=== PATIENT | female | born 1980 | race Caucasian/White ===

== ENCOUNTER 2016-07-05 17:10 | Inpatient (IN) | payer OTHER ==
[~2016-07-05] VITALS: Ht 154.9 cm; Wt 62.1 kg
[~2016-07-05 17:10] MED LIST: BUPIVACAINE /PF 0.25% 30 ML VIAL INJ ONE; ROPIVACAINE 40 MG/20 ML AMP EP ONE
[2016-07-05 18:38] VITALS: BP 86/51; PULSE 85; RESP 18; TEMP 97.7
[2016-07-05] MEDS ORDERED: OXYTOCIN/NORMAL SALINE 1,000 ML IV SCH (19:42)
[2016-07-05] MEDS ORDERED: NALBUPHINE HCL 10 MG/ML AMP IM PRN (19:45)
[2016-07-05] MEDS: LR 1,000 ML IV SCH ×3 (20:17→22:03)
[2016-07-05 20:31] LABS: HEMATOCRIT 32.7 % (36-48); HEMOGLOBIN 10.8 g/dL (12.0-16.0); MEAN CORPUSCULAR HEMOGLOBIN 29 pg (27-31); MEAN CORPUSCULAR HGB CONC 33 % (32-36); MEAN CORPUSCULAR VOLUME 86 fL (79.0-98.0); PLATELET COUNT (AUTO) 218 K/uL (130-430)
[2016-07-05 20:39] LABS: BASOPHILS % (AUTO) 0.6 % (0.0-2.0); EOSINOPHILS % (AUTO) 1.6 % (0.0-4.0); LYMPHOCYTES # (AUTO) 2.2 K/uL (1.0-5.5); LYMPHOCYTES % (AUTO) 15.5 % (20.5-51.5); MONOCYTES % (AUTO) 5.8 % (1.7-9.3); NEUTROPHILS # (AUTO) 10.9 K/uL (1.8-7.7); NEUTROPHILS % (AUTO) 76.5 % (40.0-70.0)
[2016-07-05 20:40] LABS: BASOPHILS # (AUTO) 0.1 K/uL (0.0-0.2); EOSINOPHILS # (AUTO) 0.2 K/uL (0.0-0.4); MONOCYTES # (AUTO) 0.8 K/uL (0.0-1.0); WHITE BLOOD COUNT (AUTO) 14.2 K/uL (4.8-10.8)
[2016-07-05] MEDS ORDERED: fentaNYL CITRATE/PF 100 MCG/2 ML AMP ONE (21:27)
[2016-07-05] MEDS ORDERED: FENT2mCg/mL-ROPIVA0.2%/NS EPID 150 ML EP ONE (21:27)
[2016-07-06] MEDS: LR 1,000 ML IV SCH (05:17)
[2016-07-06] MEDS ORDERED: OXYTOCIN/NORMAL SALINE 1,000 ML IV ONE (05:57)
[2016-07-06] MEDS ORDERED: OXYTOCIN/NORMAL SALINE 1,000 ML IV SCH (05:57)
[2016-07-06] MEDS ORDERED: LANOLIN 7 GM OINT. TP PRN (06:00)
[2016-07-06] MEDS ORDERED: GLYCERIN/WITCH HAZEL (TUCKS PADS) TP PRN (06:00)
[2016-07-06] MEDS ORDERED: MEASLES,MUMPS&RUBELLA VACC/PF 12500 UNIT/0.5 ML VIAL SUBQ PRN (06:00)
[2016-07-06] MEDS ORDERED: HYDROCORTISONE 0.5%, 28.35 GM TOPICAL CREAM TP PRN (06:00)
[2016-07-06] MEDS ORDERED: ANUSOL 1 EA SUPP.RECT (PREPARATION H) RC PRN (06:00)
[2016-07-06] MEDS ORDERED: OXYCODONE/ACETAMINOPHEN 5-325 TABLET PO PRN ×2 (06:00)
[2016-07-06] MEDS ORDERED: RHO(D) IMMUNE GLOBULIN/MALTOSE 1500 UNITS/1.3 ML (WINHRO) IM PRN (06:00)
[2016-07-06] MEDS ORDERED: DERMOPLAST SPRAY TP PRN (06:00)
[2016-07-06] MEDS ORDERED: SENNOSIDES/DOCUSATE SODIUM 1 TAB TABLET(SENOKOT-S) PO PRN (06:00)
[2016-07-06] MEDS ORDERED: METHYLERGONOVINE MALEATE 0.2 MG TABLET PO PRN (06:00)
[2016-07-06] MEDS: IBUPROFEN 800 MG TABLET PO PRN ×3 (10:06→23:57)
[2016-07-06] MEDS: DOCUSATE SODIUM 100 MG CAPSULE PO PRN ×2 (12:35→12:36)
[2016-07-06] MEDS ORDERED: TEMAZEPAM 15 MG CAPSULE PO PRN (21:00)
[2016-07-07] MEDS: IBUPROFEN 800 MG TABLET PO PRN (06:02)
[2016-07-07] MEDS: DOCUSATE SODIUM 100 MG CAPSULE PO PRN (06:03)
[2016-07-07 07:23] LABS: HEMATOCRIT 28.8 % (36-48); HEMOGLOBIN 9.5 g/dL (12.0-16.0)
== END 2016-07-07 12:20 | disposition home or self-care (01) | DRG 775 ==
LOC: SPU 17:10 → OBSVTOIN 18:55
PROVIDERS: ADMIT Obstetrics & Gynecology; ATTEND Obstetrics & Gynecology
PROC: 10E0XZZ Delivery of Products of Conception, External Approach (ICD-10-PCS; principal; 2016-07-05)
PROC: 0HQ9XZZ Repair Perineum Skin, External Approach (ICD-10-PCS; 2016-07-05)
PROC: 3E0S3CZ (ICD-10-PCS; 2016-07-05)
PROC: 00HU33Z Insertion of Infusion Device into Spinal Canal, Percutaneous Approach (ICD-10-PCS; 2016-07-05)
DX: O69.81X0 Labor and delivery complicated by cord around neck, without compression, not applicable or unspecified (principal); O09.513 Supervision of elderly primigravida, third trimester; Z37.0 Single live birth; O70.0 First degree perineal laceration during delivery; Z3A.39 39 weeks gestation of pregnancy; O62.3 Precipitate labor
CPT/HCPCS: 36415; 81002-TC; 85018-TC; 85025; 86886; 86900; 86901; 94760; G0378; J2590; J2795; J3010; J3490; J7120